=== PATIENT | female | born 1965 | race Native Hawaiian/Other Pacific Islander ===

== ENCOUNTER 2017-11-02 18:34 | Emergency (ER) | payer BC ==
[~2017-11-02] VITALS: Ht 165.1 cm; Wt 88.9 kg
[~2017-11-02 18:34] MED LIST: AMLO2.5T PO; ATEN25TA21 PO; ESCI10TA PO; ESCITALOPRAM20 MG PO; GLIP10TA55 PO; NATURE THROI PO; [UNRECOGNIZED DRUG - OTHER] PO
[2017-11-02 20:15] VITALS: BP 145/96; TEMP 98.6
== END 2017-11-02 20:16 | disposition home or self-care (01) ==
LOC: ED 18:34
PROC: 2W2KX4Z Dressing of Left Finger using Bandage (ICD-10-PCS; principal; 2017-11-02)
DX: T23.232A Burn of second degree of multiple left fingers (nail), not including thumb, initial encounter (principal); T31.0 Burns involving less than 10% of body surface; X15.0XXA Contact with hot stove (kitchen), initial encounter
CPT/HCPCS: 96372; 99282; J2175

== ENCOUNTER 2018-04-06 10:48 | Outpatient (CLI) | payer BC | END 2018-04-06 21:22 | disposition home or self-care (01) | LOC: MAMMO 10:48 | DX: Z12.31 Encounter for screening mammogram for malignant neoplasm of breast (principal) ==

== ENCOUNTER 2019-12-15 09:33 | Outpatient (CLI) | payer BC, OTHER | END 2019-12-15 21:50 | disposition home or self-care (01) | LOC: LAB 09:33 | DX: R06.02 Shortness of breath (principal); R50.9 Fever, unspecified | CPT/HCPCS: 87635; G2023; U00003 ==

== ENCOUNTER 2020-08-29 14:07 | Outpatient (CLI) | payer BC, OTHER | END 2020-08-29 22:08 | disposition home or self-care (01) | LOC: INF 14:07 | PROVIDERS: ATTEND Internal Medicine | DX: Z23 Encounter for immunization (principal) | CPT/HCPCS: 96372 ==

== ENCOUNTER 2020-09-20 14:06 | Outpatient (CLI) | payer BC, OTHER | END 2020-09-20 22:00 | disposition home or self-care (01) | LOC: INF 14:06 | PROVIDERS: ATTEND Internal Medicine | DX: Z23 Encounter for immunization (principal) | CPT/HCPCS: 96372 ==

== ENCOUNTER 2020-11-06 15:36 | Outpatient (CLI) | payer BC | END 2020-11-06 22:29 | disposition home or self-care (01) | LOC: MAMMO 15:36 | DX: Z12.31 Encounter for screening mammogram for malignant neoplasm of breast (principal) ==

== ENCOUNTER 2021-11-25 09:11 | Outpatient (CLI) | payer BC | END 2021-11-25 18:46 | disposition home or self-care (01) | LOC: MAMMO 09:11 | PROVIDERS: ATTEND Obstetrics & Gynecology | DX: Z13.820 Encounter for screening for osteoporosis (principal); Z12.31 Encounter for screening mammogram for malignant neoplasm of breast; N95.8 Other specified menopausal and perimenopausal disorders ==

== ENCOUNTER 2022-10-22 16:18 | Emergency (ER) | payer BC ==
[~2022-10-22] VITALS: Ht 162.6 cm; Wt 81.2 kg
[2022-10-22 16:34] VITALS: TEMP 98
[2022-10-22 17:19] LABS: PLATELET COUNT 427 K/uL (152-353)
[2022-10-22 17:26] LABS: POTASSIUM 3.7 mmol/L (3.6-5.2)
[2022-10-22 18:00] VITALS: BP 125/82
== END 2022-10-22 18:26 | disposition home or self-care (01) ==
LOC: ED 16:18
PROVIDERS: Internal Medicine
DX: K21.9 Gastro-esophageal reflux disease without esophagitis (principal)
CPT/HCPCS: 80053; 84484; 85027; 93005; 99284